=== PATIENT | female | born 1960 | race Caucasian/White ===

== ENCOUNTER 2022-05-04 11:15 | Emergency (ER) | payer BC ==
[~2022-05-04 11:15] MED LIST: HYDROmorphone 1 MG/ML Syringe ONE
[2022-05-04] MEDS ORDERED: HYDROmorphone 1 MG/ML Syringe IVPUSH ONE ×2 (11:26→13:28)
[2022-05-04 11:36] LABS: CHLORIDE,CL 101 mEq/L (98-106); SODIUM,NA 137 mEq/L (136-145)
[2022-05-04 11:37] LABS: ESTIMATED GFR 84 mL/min (>=60)
[2022-05-04] MEDS ORDERED: Take Home: Acetaminophen/HYDROcodone 325-5 MG, 2 Tab Pack PO ONE (13:06)
== END 2022-05-04 14:50 | disposition home or self-care (01) ==
LOC: CC.ED 11:15
DX: S42.034A Nondisplaced fracture of lateral end of right clavicle, initial encounter for closed fracture (principal); Z88.1 Allergy status to other antibiotic agents; Z88.0 Allergy status to penicillin; W17.89XA Other fall from one level to another, initial encounter
CPT/HCPCS: 36415; 72125; 72128; 73030-RT; 80053; 85025; 96374; 96376; 99283; 99283-25; A9270-GY; J1170